=== PATIENT | male | born 1955 | race African-American/Black ===

== ENCOUNTER 2016-09-09 09:23 | Emergency (ER) | payer MEDICARE ==
[2016-09-09 09:27] VITALS: BP 103/67; PULSE 101; RESP 15; TEMP 98.2; O2SAT 98
--- NOTE | 2016-09-09 10:12 | PD ---
HPI Chief Complaint: Psychiatric Symptoms Time Seen by Provider: 09:58 Travel History International Travel<30 days: No Contact w/Intl Traveler<30days: No Traveled to known affect area: No History of Present Illness HPI The patient is a 60-year-old Karlee male who presents emergency department via police. According to the triage note the [place] police picked up the individual and dropped him off at the back door and provided no further information. The patient is a poor historian, will be discharged his pockets he did have a piece of paper that stated he lives at an [facility] and has a history of paranoid schizophrenia. The patient denies any physical complaints, cannot recall where he lives or who he lives with. He denies any history of psychiatric disorders and denies any ingestion of any alcohol or illicit drugs. He is unable to tell me the current location, year, or months. He is able to tell me his full name. He denies any physical complaints including chest pain, shortness breath, nausea, vomiting, or abdominal pain. [facility] Past Medical History Narrative Medical Possible paranoid schizophrenia according to piece of paperwork found in his wallet Medical History: Unable to Obtain Past Surgical History Surgical History: Unable to Obtain Social History Alcohol Use: No Tobacco Use: Yes (12/day) Substance Use: No Allergies-Medications (Allergen,Severity, Reaction): Coded Allergies: UNOBTAINABLE (Unverified , 09/09/16) Reported Meds & Prescriptions Reported Meds & Active Scripts Active Active Prescriptions or Reported Medications Unobtainable Review of Systems ROS Limitations: Poor Historian Except as stated in HPI: all other systems reviewed are Neg Cardiovascular: No: Chest Pain or Discomfort Respiratory: No: Shortness of Breath Gastrointestinal: No: Nausea, Vomiting, Abdominal Pain Psychiatric: Positive: Disorder of Thought (possible history of paranoid schizophrenia) Physical Exam Narrative GENERAL: Awake, alert, 60-year-old male who appears his stated age and is in no acute respiratory distress. SKIN: Focused skin assessment warm/dry. HEAD: Atraumatic. Normocephalic. EYES: Pupils equal and round. Pupils are 3 mm bilateral and reactive. ENT: No nasal bleeding or discharge. Poor dentition. NECK: Trachea midline. No JVD. CARDIOVASCULAR: Regular, tachycardic with a heart rate of 105. RESPIRATORY: No accessory muscle use. Clear to auscultation. Breath sounds equal bilaterally. GASTROINTESTINAL: Abdomen soft, non-tender, nondistended. No rebound tenderness. MUSCULOSKELETAL: No obvious deformities. No clubbing. No cyanosis. No edema. NEUROLOGICAL: Awake and alert. No obvious cranial nerve deficits. Motor grossly within normal limits. Normal speech. Patient is oriented to person, but not place, month, or year. PSYCHIATRIC: Appropriate mood and affect; insight and judgment normal. Data Data Last Documented VS Vital Signs Date Time Temp Pulse Resp B/P Pulse Ox O2 Delivery O2 Flow Rate FiO2 09/09/16 09:27 98.2 101 15 103/67 98 Orders Complete Blood Count With Diff (09/09/16 10:06) Comprehensive Metabolic Panel (09/09/16 10:06) Thyroid Stimulating Hormone (09/09/16 10:06) Urinalysis - C+S If Indicated (09/09/16 10:06) Valproic Acid (Depakene) (09/09/16 10:06) Psych Screen (09/09/16 10:06) [place] (Li) (09/09/16 10:06) Drug Screen, Random Urine (09/09/16 10:06) Alcohol (Ethanol) (09/09/16 10:06) Ammonia (09/09/16 10:06) Ct Brain W/O Iv Contrast(Rout) (09/09/16 ) Lactic Acid (09/09/16 10:06) Sodium Chlorid 0.9% 500 Ml Inj (Ns 500 M (09/09/16 10:15) Diet Regular Basic (09/09/16 Lunch) Labs Laboratory Tests Test 09/09/16 10:25 White Blood Count 7.6 TH/MM3 Red Blood Count 3.98 MIL/MM3 Hemoglobin 12.2 GM/DL Hematocrit 37.0 % Mean Corpuscular Volume 93.1 FL Mean Corpuscular Hemoglobin 30.8 PG Mean Corpuscular Hemoglobin 33.0 % Concent Red Cell Distribution Width 15.2 % Platelet Count 301 TH/MM3 Mean Platelet Volume 7.1 FL Neutrophils (%) (Auto) 60.3 % Lymphocytes (%) (Auto) 26.9 % Monocytes (%) (Auto) 10.8 % Eosinophils (%) (Auto) 1.5 % Basophils (%) (Auto) 0.5 % Neutrophils # (Auto) 4.6 TH/MM3 Lymphocytes # (Auto) 2.0 TH/MM3 Monocytes # (Auto) 0.8 TH/MM3 Eosinophils # (Auto) 0.1 TH/MM3 Basophils # (Auto) 0.0 TH/MM3 CBC Comment DIFF FINAL Differential Comment Sodium Level 137 MEQ/L Potassium Level 4.5 MEQ/L Chloride Level 103 MEQ/L Carbon Dioxide Level 28.1 MEQ/L Anion Gap 6 MEQ/L Blood Urea Nitrogen 13 MG/DL Creatinine 0.91 MG/DL Estimat Glomerular Filtration 103 ML/MIN Rate Random Glucose 83 MG/DL Lactic Acid Level 1.5 mmol/L Calcium Level 9.2 MG/DL Total Bilirubin 0.3 MG/DL Aspartate Amino Transf 18 U/L (AST/SGOT) Alanine Aminotransferase 39 U/L (ALT/SGPT) Alkaline Phosphatase 125 U/L Ammonia 24 MCMOL/L Total Protein 7.5 GM/DL Albumin 3.8 GM/DL Thyroid Stimulating Hormone 1.660 uIU/ML 3rd Gen Valproic Acid (Depakene) Level LESS THAN 3 MCG/ML [place] Level LESS THAN 0.1 MEQ/L Ethyl Alcohol Level LESS THAN 3 MG/DL [facility] Medical Decision Making Medical Screen Exam Complete: Yes Emergency Medical Condition: Yes Medical Record Reviewed: Yes Interpretation(s) CT of the brain is unremarkable Laboratory Tests Test 09/09/16 10:25 White Blood Count 7.6 TH/MM3 Red Blood Count 3.98 MIL/MM3 Hemoglobin 12.2 GM/DL Hematocrit 37.0 % Mean Corpuscular Volume 93.1 FL Mean Corpuscular Hemoglobin 30.8 PG Mean Corpuscular Hemoglobin 33.0 % Concent Red Cell Distribution Width 15.2 % Platelet Count 301 TH/MM3 Mean Platelet Volume 7.1 FL Neutrophils (%) (Auto) 60.3 % Lymphocytes (%) (Auto) 26.9 % Monocytes (%) (Auto) 10.8 % Eosinophils (%) (Auto) 1.5 % Basophils (%) (Auto) 0.5 % Neutrophils # (Auto) 4.6 TH/MM3 Lymphocytes # (Auto) 2.0 TH/MM3 Monocytes # (Auto) 0.8 TH/MM3 Eosinophils # (Auto) 0.1 TH/MM3 Basophils # (Auto) 0.0 TH/MM3 CBC Comment DIFF FINAL Differential Comment Sodium Level 137 MEQ/L Potassium Level 4.5 MEQ/L Chloride Level 103 MEQ/L Carbon Dioxide Level 28.1 MEQ/L Anion Gap 6 MEQ/L Blood Urea Nitrogen 13 MG/DL Creatinine 0.91 MG/DL Estimat Glomerular Filtration 103 ML/MIN Rate Random Glucose 83 MG/DL Lactic Acid Level 1.5 mmol/L Calcium Level 9.2 MG/DL Total Bilirubin 0.3 MG/DL Aspartate Amino Transf 18 U/L (AST/SGOT) Alanine Aminotransferase 39 U/L (ALT/SGPT) Alkaline Phosphatase 125 U/L Ammonia 24 MCMOL/L Total Protein 7.5 GM/DL Albumin 3.8 GM/DL Thyroid Stimulating Hormone 1.660 uIU/ML 3rd Gen Valproic Acid (Depakene) Level LESS THAN 3 MCG/ML [place] Level LESS THAN 0.1 MEQ/L Ethyl Alcohol Level LESS THAN 3 MG/DL Differential Diagnosis Differential diagnosis includes altered mental status, encephalitis, Alzheimer's , dementia, hyponatremia, schizophrenia. Narrative Course IV was established, labs are drawn and sent, and the patient was placed on cardiac telemetry monitoring and continuous pulse oximetry monitoring. CT the brain was obtained. The patient is unable to tell me where he currently lives, however, does have a piece of paper in his wallet this states he lives at an [facility] in [place], [place]. We attempted to call the police department and talked to the public safety police who picked up the individual to obtain further information. The patient apparently may have recently been incarcerated and may be the reason he is in [facility] and not in [place]. We also called the patient's living facility in [place], [place]. Nursing staff discussed the patient with dispatch for the police who stated the patient was trespassing on [facility] [employer] property and when the police arrived he asked for courtesy ride to the emergency department to be evaluated by psychiatry. We also discussed the patient with his brother has not seen him in several years. The brother states the patient was staying at a place located in [place], [place], however relocated to another facility [facility]. The brother states that the patient requested no family interaction, therefore, the patient's brother is not spoke with the patient several years. We are unable to locate the patient' s current location of residence. Laboratory evaluation and CT of the brain are negative. The patient is medically cleared to be evaluated by psychiatry. The patient will need evaluation for competency to see if he is able to make his own decisions, if not, the patient may need a health care proxy such as his brother or one of pointed by the court. Diagnosis Primary Impression: Schizophrenia Scripts Unable to Obtain Active Prescriptions or Reported Meds Condition: Thee Clarke MD Sep 09, 2016 10:12
[2016-09-09] MEDS: SODIUM CHLORID 0.9% 500 ML INJ 500 ML IV ONE (10:15)
[2016-09-09 10:41] LABS: AUTOMATED NEUTROPHIL # 4.6 TH/MM3 (1.8-7.7); BASOPHIL % 0.5 % (0.0-2.0); EOSINOPHIL # 0.1 TH/MM3 (0-0.4); EOSINOPHIL % 1.5 % (0.0-4.0); HEMO FLAGS DIFF FINAL; LYMPH % 26.9 % (9.0-44.0); MEAN CELL VOLUME 93.1 FL (80.0-100.0); MEAN CORPUSCULAR HEMOGLOBIN 30.8 PG (27.0-34.0); MONO % 10.8 % (0.0-8.0); NEUT % 60.3 % (16.0-70.0); PLATELET COUNT 301 TH/MM3 (150-450); RED BLOOD COUNT 3.98 MIL/MM3 (4.50-5.90); RED CELL DISTRIBUTION WIDTH 15.2 % (11.6-17.2); WHITE BLOOD COUNT 7.6 TH/MM3 (4.0-11.0)
[2016-09-09 11:01] LABS: ALT (GPT) 39 U/L (12-78); ANION GAP 6 MEQ/L (5-15); AST (GOT) 18 U/L (15-37); BICARBONATE 28.1 MEQ/L (21.0-32.0); BLOOD UREA NITROGEN 13 MG/DL (7-18); CHLORIDE 103 MEQ/L (98-107); GLOMERULAR FILTRATION RATE 103 ML/MIN (>89); POTASSIUM 4.5 MEQ/L (3.5-5.1); SODIUM (NA) 137 MEQ/L (136-145)
[2016-09-09 11:11] LABS: ALKALINE PHOSPHATASE 125 U/L (45-117); TOTAL BILIRUBIN ADULT 0.3 MG/DL (0.2-1.0)
--- NOTE | 2016-09-09 11:59 | RADRPT ---
EXAM DATE/TIME: 09/09/2016 11:46 [facility] COMPARISON: No previous studies available for comparison. INDICATIONS : Altered mental status RADIATION DOSE: 33.37 CTDIvol (mGy) MEDICAL HISTORY : None SURGICAL HISTORY : None. ENCOUNTER: Initial ACUITY: 1 day PAIN SCALE: 0/10 LOCATION: cranial TECHNIQUE: Multiple contiguous axial images were obtained of the head. Using automated exposure control and adj ustment of the mA and/or kV according to patient size, radiation dose was kept as low as reasonably a chievable to obtain optimal diagnostic quality images. DICOM format image data is available electro nically for review and comparison. FINDINGS: There is no evidence for intracranial hemorrhage, mass effect, mass lesions, edema, or extra-axial fl uid collections. The visualized bony structures appear intact. The ventricles are normal size for t he patient's age. There are no signs of acute infarction for technique. CONCLUSION: Unremarkable study. Kareen Bunch MD on September 09, 2016 at 11:56 Board Certified Radiologist. This report was verified electronically.
--- NOTE | 2016-09-09 13:46 | PD ---
History of Present Illness Chief Complaint: Psychiatric Symptoms Time Seen by Provider: 12:50 Travel History International Travel<30 Days: No Contact w/Intl Traveler<30days: No Known affected area: No Legal Status Legal Status: Voluntary History of Present Illness: History of Present Illness HPI The patient is a 60-year-old Karlee male who presents to emergency department via police on a voluntary status. According to the triage note the [place] police picked up the individual and dropped him off at the back door and provided no further information. The patient is a poor historian and provides little information. He did have a piece of paper in his pocket from [employer] in which it states that he has a history of paranoid schizophrenia. ED note states " " The patient denies any physical complaints, cannot recall where he lives or who he lives with. He denies any history of psychiatric disorders and denies any ingestion of any alcohol or illicit drugs. He is unable to tell me the current location, year, or month. He is able to tell me his full name. He denies any physical complaints including chest pain, shortness breath, nausea, vomiting, or abdominal pain." EMR is reviewed. No previous contact with [facility] Patient seen. he is alert male who is sitting calmly on stretcher. He is maintaining basic hygiene. He responds to his name . Not oriented to date, place or situation. States " the people out there told me to come here to [place]". He then digresses into nonsensical conversation. He does not appear to be responding to internal stimuli. When asked about hallucinations he states " no voices". He denies suicidal or homicidal ideation and states " I'll be alright". He does not appear to be depressed. No dieter or hypomania. Attention and concentration are decreased. In terms of where he lives he tells me that he has " a room with two beds" but he does not know the name of the facility. He does tell me he would like to go back to his house but not to [place]. Telephone call to patient's brother at [phone]. Message left to call [facility]. No patient info left on message. Telephone call to [facility]. I spoke with Chari who consulted with dentist/owner Bradly. She reports that patient has been a resident of [facility] since 2011 and that he went to alf in May. They had no knowledge that he was released from alf. They will accept him back there but request that [facility] transport him since they have no transportation. Above info provided to nurse, Maegan, to charge nurse Marita as well as with director of casework. [facility] Past Medical History Medical History: Unable to Obtain Past Surgical History Surgical History: Unable to Obtain Psychiatric History Psychiatric History Hx Psychiatric Treatment: Unable to obtain any information from [facility] Social History Resident of [facility] since 2011. Hx Alcohol Use: No Hx Tobacco Use: Yes (12/day) Hx Substance Use: No Family Psychiatric History Unable to obtain Allergies-Medications (Allergen,Severity, Reaction): Coded Allergies: UNOBTAINABLE (Unverified , 09/09/16) Reported Meds & Prescriptions Reported Meds & Active Scripts Active Active Prescriptions or Reported Medications Unobtainable Review of Systems ROS Limitations: Poor Historian Exam Alert: Yes [place]: Person (only) Mood: Calm Affect: Other (variable) Speech: Clear (Nonsensical at times. ) Eye Contact: Indirect Memory Intact: Comment (Poor historia . Not formally tetsed.) Hallucinations: Other (deneis any) Delusions: No Suicidal: Ideation (Neagtive. ) Homicidal: Ideation (negative) Insight/Judgement None. Poor. [facility] Medical Decision Making Medical Record Reviewed: Yes Assessment/Plan 60 year old male with unknown psychiatric history who was dropped off by the police. They provided no further information and the patient is a poor historian. He does not appear to be experiencing any acute psychiatric symptomatology at this time.Denies hallucinations, not paranoid, not manic. No suicidal or homicidal ideation. Does appear of somewhat limited cognitive capacity. [facility] was contacted and he has been their resident since 2011 and will gladly take him back. At this time he does not meet criteria to remain in the hospital. Orders Complete Blood Count With Diff (09/09/16 10:06) Comprehensive Metabolic Panel (09/09/16 10:06) Thyroid Stimulating Hormone (09/09/16 10:06) Urinalysis - C+S If Indicated (09/09/16 10:06) Valproic Acid (Depakene) (09/09/16 10:06) Psych Screen (09/09/16 10:06) [place] (Li) (09/09/16 10:06) Drug Screen, Random Urine (09/09/16 10:06) Alcohol (Ethanol) (09/09/16 10:06) Ammonia (09/09/16 10:06) Ct Brain W/O Iv Contrast(Rout) (09/09/16 ) Lactic Acid (09/09/16 10:06) Sodium Chlorid 0.9% 500 Ml Inj (Ns 500 M (09/09/16 10:15) Diet Regular Basic (09/09/16 Lunch) Results Vital Signs Date Time Temp Pulse Resp B/P Pulse Ox O2 Delivery O2 Flow Rate FiO2 09/09/16 09:27 98.2 101 15 103/67 98 Laboratory Tests Test 09/09/16 10:25 White Blood Count 7.6 Red Blood Count 3.98 Hemoglobin 12.2 Hematocrit 37.0 Mean Corpuscular Volume 93.1 Mean Corpuscular Hemoglobin 30.8 Mean Corpuscular Hemoglobin 33.0 Concent Red Cell Distribution Width 15.2 Platelet Count 301 Mean Platelet Volume 7.1 Neutrophils (%) (Auto) 60.3 Lymphocytes (%) (Auto) 26.9 Monocytes (%) (Auto) 10.8 Eosinophils (%) (Auto) 1.5 Basophils (%) (Auto) 0.5 Neutrophils # (Auto) 4.6 Lymphocytes # (Auto) 2.0 Monocytes # (Auto) 0.8 Eosinophils # (Auto) 0.1 Basophils # (Auto) 0.0 CBC Comment DIFF FINAL Differential Comment Sodium Level 137 Potassium Level 4.5 Chloride Level 103 Carbon Dioxide Level 28.1 Anion Gap 6 Blood Urea Nitrogen 13 Creatinine 0.91 Estimat Glomerular Filtration 103 Rate Random Glucose 83 Lactic Acid Level 1.5 Calcium Level 9.2 Total Bilirubin 0.3 Aspartate Amino Transf 18 (AST/SGOT) Alanine Aminotransferase 39 (ALT/SGPT) Alkaline Phosphatase 125 Ammonia 24 Total Protein 7.5 Albumin 3.8 Thyroid Stimulating Hormone 1.660 3rd Gen Valproic Acid (Depakene) Level LESS THAN 3 [place] Level LESS THAN 0.1 Ethyl Alcohol Level LESS THAN 3 Diagnosis Primary Impression: Schizophrenia Psychiatrically Cleared: Yes Med/ Other Pt Specific Info: No Meds Exist/No RX given Prescriptions Unable to Obtain Active Prescriptions or Reported Meds Disposition: 01 DISCHARGE HOME Condition: Stable Problem Qualifiers Primary Impression: Schizophrenia Qualified Code: F20.9 - Schizophrenia, unspecified type Destini Carr Sep 09, 2016 13:46
== END 2016-09-09 15:12 | disposition home or self-care (01) ==
LOC: NEPD 09:23
DX: F20.0 Paranoid schizophrenia (principal); F17.200 Nicotine dependence, unspecified, uncomplicated
CPT/HCPCS: 70450; 80053; 80164; 80178; 80307; 82140; 83605; 84443; 85025; 99284; J7040